=== PATIENT | female | born 1985 | race Caucasian/White ===

== ENCOUNTER 2016-12-28 11:03 | Emergency (ER) | payer BC, OTHER ==
--- NOTE | 2016-12-28 11:49 | RAD ---
ELBOW -RIGHT 3-4 VIEWS COMPARISON: None HISTORY: Follow injury today. Right elbow pain. FINDINGS: Views: Right elbow AP, oblique, lateral. Bones: Nondisplaced fracture of the radial head. Joint: Moderate effusion. Soft tissues: Normal. IMPRESSION: 1. Nondisplaced fracture of the right radial head. Associated joint effusion.
--- NOTE | 2016-12-28 11:52 | RAD ---
WRIST RIGHT 2 VIEWS COMPARISON: None HISTORY: Follow injury. FINDINGS: Views: PA and lateral right wrist. Bones: Normal. Joints: Normal. Soft tissues: Normal. IMPRESSION: 1. Normal study.
== END 2016-12-28 12:48 | disposition home or self-care (01) ==
LOC: ED 11:03
DX: M25.521 Pain in right elbow (principal); W18.30XA Fall on same level, unspecified, initial encounter; Y92.9 Unspecified place or not applicable